=== PATIENT | female | born 1970 | race Two or more races ===

== ENCOUNTER 2019-07-10 10:51 | Outpatient (CLI) | payer OTHER | END 2019-07-10 11:06 | disposition home or self-care (01) | LOC: RX STUDY 10:51 | DX: R13.13 Dysphagia, pharyngeal phase (principal) ==

== ENCOUNTER 2025-01-06 04:18 | Emergency (ER) | payer OTHER ==
[~2025-01-06] VITALS: Ht 170.2 cm; Wt 68.9 kg
[2025-01-06] MEDS ORDERED: WELLBUTRIN SR150 MG (04:35)
[2025-01-06] MEDS ORDERED: KETOROLAC TROMETHAMINE 60 MG VIAL IM STA (05:00)
[2025-01-06] MEDS ORDERED: ORPHENADRINE CITRATE 30 MG/ML AMPUL IM STA (05:00)
[2025-01-06] MEDS ORDERED: KETO10TA2 PO (05:03)
[2025-01-06] MEDS ORDERED: NORFLEX100MG PO (05:03)
== END 2025-01-06 05:10 | disposition home or self-care (01) ==
LOC: ER 04:27
DX: G44.209 Tension-type headache, unspecified, not intractable (principal)

== ENCOUNTER 2025-03-17 12:50 | Emergency (ER) | payer OTHER ==
[~2025-03-17] VITALS: Ht 170.2 cm; Wt 67.1 kg
[~2025-03-17 12:50] MED LIST: KETO10TA2 PO; NORFLEX100MG PO; WELLBUTRIN SR150 MG
[2025-03-17] MEDS ORDERED: PROTONIX20 MG PO (13:46)
[2025-03-17] MEDS ORDERED: RITALIN5 M1 PO (13:46)
[2025-03-17] MEDS ORDERED: ORPHENADRINE CITRATE 30 MG/ML AMPUL IM ONE (14:30)
[2025-03-17] MEDS ORDERED: 0.9 % SODIUM CHLORIDE 1,000 ML IV ONE (14:30)
[2025-03-17] MEDS ORDERED: PANTOPRAZOLE SODIUM 40 MG/VIAL VIAL IV ONE (14:30)
[2025-03-17] MEDS ORDERED: LACTOBACILLUS ACIDOPHILUS 1 CAP CAP PO ONE (14:30)
[2025-03-17 17:43] LABS: BASO % 0.9 % (0.1-1.2); EOS # 0.19 (0.04-0.54); EOS % 2.8 % (0.7-7.0); LYMPH # 1.68 (1.18-3.74); LYMPH % 24.7 % (19.3-53.1); MEAN PLATELET VOLUME 10.50 fl (9.4-12.4); MONO # 0.49 (0.24-0.82); MONO % 7.2 % (4.7-12.5); NEUT # 4.37 (1.56-6.13); NEUT % 64.1 % (34.0-71.1); RED CELL DISTRIBUTION WIDTH 12.9 % (11.6-14.4)
[2025-03-17 17:54] LABS: INR 0.95
[2025-03-17 18:06] LABS: ALT/SGPT 24.0 U/L (12-78); AST/SGOT 12.0 U/L (15-37); BILIRUBIN TOTAL 0.41 mg/dL (0.3-1.2); BUN CREA RATIO 19.0 (7.0-25.0); CREATININE SERUM 0.58 mg/dL (0.55-1.02); GFR 107.15; GLOBULINA 3.5 G/DL (2.4-3.5); GLUCOSE FASTING 83.0 mg/dL (65-100); OSMOLALITY SERUM 280.0 MOSM/KG (275-295)
[2025-03-17 18:49] LABS: URINE APPEARANCE Clear; URINE BILIRRUBIN Negative (NEGATIVE); URINE BLOOD Negative; URINE COLOR Yellow; URINE GLUCOSE Negative (NEGATIVE); URINE KETONE Negative (NEGATIVE); URINE LEUKOCYTE Negative; URINE NITRATE Negative; URINE PROTEIN Negative (NEGATIVE); URINE UROBILINOGEN 0.2 E.U./dl
[2025-03-17 18:51] LABS: FECAL LEUKOCYTES NEGATIVE (NEGATIVE); ob NEGATIVE (NEGATIVE)
[2025-03-17 18:53] LABS: URINE BACTERIA 19.2 uL (0.0-1933); URINE EPITHELIAL CELLS 1.8 uL (0.0-38.8); URINE WBC 3.3 uL (0.0-23.2)
[2025-03-17 18:58] LABS: URINE CAST 0.00 uL (0.0-1.40); URINE RBC 1.0 uL (0.0-20.8)
[2025-03-17] MEDS ORDERED: PEPCID AC20 MG PO (22:32)
== END 2025-03-17 22:52 | disposition home or self-care (01) ==
LOC: ER 12:51
PROVIDERS: General Practice
DX: K29.70 Gastritis, unspecified, without bleeding (principal); R10.13 Epigastric pain; K59.00 Constipation, unspecified